=== PATIENT | female | born 1980 | race Caucasian/White ===

== ENCOUNTER 2016-06-25 19:05 | Observation (INO) | payer BC ==
--- NOTE | ~2016-06-25 | PREOPHP ---
PreOp History and Physical [facility] [address] [place]. [address] NAME: SHABANA NORTON : 80 STATUS : ADM IN PAT#: [id number] AGE: 35 ADM/REG DATE : 06/25/16 MR#: [id number] REPORT SERV DATE: 06/26/16 DICTATED BY: DAVID CHRISTIANSON DATE: 06/26/16 REPORT STATUS : Draft TRANSCRIBED BY: MODPhill DATE: 06/26/16 CHIEF COMPLAINT: Intractable left buttock and leg pain. HISTORY OF PRESENT ILLNESS: A 35-year-old female, who I saw for the first time in the office less than 12 hours ago, presenting with a three-week history onset of left low back pain, left buttock and leg pain. The pain started out after history of intermittent low back pain, also known for a long time. But the pain has started three weeks ago was totally different than she had before. The pain was more severe, but over the last few days, the pain has become 10/10 totally intractable to the point she cannot walk. She is also urinating on herself when she tries to spin tank tender a dependent position. When I walked into the office yesterday to see her, she was lying prone on the table. So, this was the only position she could get into that did not cause severe agonizing pain. As I tried to turn her supine to do an exam, she was screaming in pain. She has a markedly positive straight leg raising sign even at 20 degrees. She was sent for a stat MRI, which shows a massive extruded disk herniation at L5-S1, was almost complete cauda equina compromise. The patient has obviously partial cauda equina syndrome with weakness of her gastrocsoleus loss of both Achilles reflexes and a rectal exam was not completed, but the patient is having feeling of numbness in the perineal, perirectal, and perivaginal area. She was brought to the hospital on urgent basis for IV pain control and will be taken to surgery this morning for a left- sided L5-S1 microdiskectomy. I have gone over with she and her risks, benefits, alternatives, expectations including but not limited to infection that could be injury to the thecal sac, nerve with numbness, tingling, weakness, paralysis, quadriplegia, or even . Recurrent disk herniation can occur that would require additional surgery up to and including arthrodesis. The patient understands and answered. There were no guarantees that she will regain all of her urinary function. So far, bowel function seems to be intact. She is able to detect when she is passing flatus. But she understands that this can have some affect on both bowel and bladder as well as sexual function. Perioperative complications such as UTI, PE, pneumonia, ME, CVA, etc., was explained. Consent form has been signed. PAST MEDICAL HISTORY: Positive only for some asthma. PAST SURGICAL HISTORY: She has had wisdom tooth extraction, , tubal ligation. CURRENT MEDICATIONS: She has taken tkhl-efa-dceghfb anti-inflammatories and cbof-qpb-euesxqe acetaminophen. ALLERGIES: HYDROCODONE. SOCIAL HISTORY: She is . Two children. Self-employed. Surgical First Assistant. Never smoked. Drinks alcohol on a social basis. She has been an active [employer] in the past. FAMILY HISTORY: Her maternal grandmother had a malignant neoplasm, she is unsure the origins, did from the neoplasm. Her grandfather had tuberculosis. REVIEW OF SYSTEMS: Negative. PreOp History and Physical [address] [address] NAME: SHABANA NORTON : 80 STATUS : ADM IN [facility]#: [id number] AGE: 35 ADM/REG DATE : 06/25/16 MR#: [id number] REPORT SERV DATE: 06/26/16 DICTATED BY: DAVID CHRISTIANSON DATE: 06/26/16 REPORT STATUS : Draft TRANSCRIBED BY: HUBER DATE: 06/26/16 PHYSICAL EXAMINATION: VITAL SIGNS: She was 5 feet 7 inches, 250 pounds. GENERAL: Alert, cooperative, well oriented. She was in acute painful distress without any down. HEENT: Exam is grossly normal. LUNGS: Clear to auscultation. HEART: Regular rate and rhythm. ABDOMEN: Soft with good bowel sounds. No peritoneal signs are noted. SPINE: Exam revealed no deformities. She had marked spasm in her back with just palpation. There was mention that she has a markedly positive straight leg raising sign even at 30 degrees on the left. She had a positive straight leg raising on the right at 50-60 degrees. She has a loss of Achilles reflexes. Her gastrocsoleus on the left is only 3/5. There is decreased sensation in the S1 distribution on the left. On the right, it seems to be normal. All other motor strengths as best I can tell are intact. She is having so much pain, trying to be in a supine position. I could not assess completely. Kanchan signs seemed to be negative. Toes are downgoing. There is no ankle clonus found. Orthopedically, there is no pain with moving hips, knees, or ankles. There are pulses in all four extremities. No abnormal skin lesions are found. ASSESSMENT: Massive herniated nucleus pulposus central left L5-S1 with partial cauda equina syndrome. RECOMMENDATIONS: As listed above. /MODL David Christianson D.O. / [id number] CC: David Christianson D.O.
--- NOTE | ~2016-06-25 | OP ---
Record Of Operation [facility] [address] [place]. [address] NAME: SHABANA NORTON : 80 STATUS : DIS Rene PAT#: [id number] AGE: 35 ADM/REG DATE : 06/25/16 MR#: [id number] REPORT SERV DATE: 06/27/16 DICTATED BY: DAVID CHRISTIANSON DATE: 06/27/16 REPORT STATUS : Draft TRANSCRIBED BY: MODL DATE: 06/27/16 DATE OF PROCEDURE: 06/26/2016 PREOPERATIVE DIAGNOSIS: Massive herniated nucleus polyposis at L5-S1 with partial cauda equina syndrome. POSTOPERATIVE DIAGNOSIS: Massive herniated nucleus polyposis at L5-S1 with partial cauda equina syndrome. PROCEDURES: 1. Microscopic navigation-assisted surgery. 2. Left L5-S1 hemilaminotomy, partial facetectomy, and microdiskectomy. SURGEON: David Christianson D.O. COMPRESSOR OPERATOR: Sophia Stroud. ANESTHESIA: General. BLOOD LOSS: Less than 20 mL. INDICATIONS FOR SURGERY: A 35-year-old female with totally intractable pain in the back as well as the left buttock and leg. She was seen in the office and sent for a stat MRI as she had symptoms compatible with cauda equina. MRI showed a massive herniation centrally and filling the 90% of the canal. She was admitted for IV pain control and brought to the surgery now for decompressive surgery. Prior to surgery, risks, benefits, alternatives, and expectations have been explained. Consent form has been signed. PROCEDURE IN DETAIL: Antibiotic prophylaxis given. Neurophysiology monitoring leads inserted. The patient was brought to the operative suite. General anesthetic including endotracheal intubation was administered. She was placed prone on a Marcelo spine frame. Bony prominences were carefully padded. Thoracolumbar spine scrubbed with Hibiclens solution. DuraPrep was painted. Sterile drapes applied. Because of the complexity of surgery and the need to identify correct level of surgery intraoperatively as well as desire to carry out the safest and most precise dissection, I feel intraoperative navigation is mandatory. A small stab wound was carried out over the right posterior superior iliac spine. A percutaneous pin with navigational frame attached was inserted in PSIS. Intraoperative CT scan with the O-arm was obtained. CT information was used to register the navigational system. With navigational assistance, I identified L5-S1. A small midline skin incision was carried out approximately 2 cm in length. A blunt navigated probe was placed through the fascia and muscle and docked over the interlaminar space. Muscle dilators were inserted, followed by Record Of Operation [facility] [address] [place]. [address] NAME: SHABANA NORTON : 80 STATUS : DIS Rene PAT#: [id number] AGE: 35 ADM/REG DATE : 06/25/16 MR#: [id number] REPORT SERV DATE: 06/27/16 DICTATED BY: DAVID CHRISTIANSON DATE: 06/27/16 REPORT STATUS : Draft TRANSCRIBED BY: MODL DATE: 06/27/16 placement of a tubular retractor attached to an arm mount on the table. The microscope was sterilely draped and used throughout the remainder of the procedure. With navigational assistance, I identified the amount of lamina of L5 that I needed to remove in order to reach the cephalad boundary of the disk behind the body of L5. I used a 3 mm valdemar bur and removed 70% of the lamina of L5. 25% of the medial facet joint to create enough room to safely try to remove the large disk fragment. The thecal sac and the nerve root were gently retracted toward the midline after the lateral ligamentum flavum had been removed. Epidural hemostasis obtained with a bipolar cautery. After gently mobilizing the thecal sac, we were able to identify this massive herniation which was then grabbed by a pituitary rongeur and removed as one large massive disk fragment. The wound was irrigated. The epidural hemostasis was obtained. The retractor was removed. The fascia was allowed to reapproximate itself. The subcutaneous tissue closed with 2-0 Vicryl suture and 2-0 vertical mattress nylon suture used for skin closure. Sterile dressings applied. The patient awakened, extubated, and taken to recovery room in satisfactory condition having tolerated the procedure well. Sponge, needle, and instrument counts were correct. No intraoperative complications noted. /HUBER David Christianson D.O. / [id number] CC: David Christianson D.O.
[2016-06-25 23:37] LABS: HEMATOCRIT 34.3 % (36.0-48.0); HEMOGLOBIN 11.2 g/dL (12.0-16.0)
[2016-06-26] MEDS ORDERED: ADVIL PO (01:15)
[2016-06-26] MEDS ORDERED: DIL4TAB PO (16:47)
[2016-06-26] MEDS ORDERED: ANADS PO (16:48)
[2016-06-26] MEDS ORDERED: METHOC750B PO (16:49)
[2016-06-26] MEDS ORDERED: V2 PO (16:49)
== END 2016-06-26 19:39 | disposition home or self-care (01) ==
LOC: 3SO 19:05
PROVIDERS: Orthopaedic Surgery Orthopaedic Surgery of the Spine
PROC: 01NB0ZZ Release Lumbar Nerve, Open Approach (ICD-10-PCS; 2016-06-26)
PROC: 0SB20ZZ Excision of Lumbar Vertebral Disc, Open Approach (ICD-10-PCS; principal; 2016-06-26 10:15)
DX: M51.27 Other intervertebral disc displacement, lumbosacral region (principal); G83.4 Cauda equina syndrome; J45.909 Unspecified asthma, uncomplicated; Z98.51 Tubal ligation status; Z98.890 Other specified postprocedural states; Z88.5 Allergy status to narcotic agent; Z86.73 Personal history of transient ischemic attack (TIA), and cerebral infarction without residual deficits; Z79.1 Long term (current) use of non-steroidal anti-inflammatories (NSAID)
CPT/HCPCS: 84703; 85014; 85018; 88304; 88311; 96374; A9270-GY; G0378; J0690; J2250; J2270; J2274; J2405; J2710; J3010